=== PATIENT | female | born 1990 | race Hispanic/Latino ===

== ENCOUNTER 2021-07-19 19:31 | Inpatient (IN) | payer OTHER ==
[2021-07-19 19:57] VITALS: BMI 31.2
[2021-07-19] MEDS ORDERED: hydrALAZINE 20 MG/ML VIAL SLOW IVP PRN (20:20)
[2021-07-19 21:05] LABS: Fetal Membranes Rupture No Membranes Rupture (No Rupture)
[2021-07-19] MEDS ORDERED: Promethazine HCl 25 MG/ML VIAL IM PRN ×2 (22:22→23:59)
[2021-07-19] MEDS ORDERED: Ondansetron PF 4 MG/2 ML Vial IVP PRN ×2 (22:22→23:59)
[2021-07-19] MEDS ORDERED: Lidocaine 1% (PF) 30 ML VIAL SC PRN (22:22)
[2021-07-19] MEDS ORDERED: Ibuprofen 800 MG TAB PO PRN (22:22)
[2021-07-19] MEDS ORDERED: Acetaminophen 500 MG TAB PO PRN (22:22)
[2021-07-19] MEDS ORDERED: NS w/ Oxytocin 30 units 500 ML IV SCH (22:30)
[2021-07-19] MEDS ORDERED: Lactated Ringer's 1,000 ML IV SCH (22:30)
[2021-07-19] MEDS ORDERED: Butorphanol Tartrate 1 MG/ML VIAL SLOW IVP PRN (22:46)
[2021-07-19 22:56] LABS: Hemoglobin 10.3 g/dL (12.0-15.5); Mean Corpuscular HGB CONC 34.8 g/dL (32.0-36.0); Mean Corpuscular Hemoglobin 33.4 pg (27.0-33.0); Mean Corpuscular Volume 96.1 fl (81.6-98.3); Mean Platelet Volume 10.4 fl (7.4-10.4); Platelet Count 178 10x3/uL (150-450); RBC Distribution Width 13.3 % (11.5-14.5); Red Blood Cell (RBC) Count 3.08 10x6/uL (3.90-5.03); White Blood Cell (WBC) Count 11.2 10x3/uL (3.5-10.5)
[2021-07-19] MEDS ORDERED: Fentanyl 2 mcg/Bup 0.1% Cadd 100 ML ONE (23:13)
[2021-07-19 23:29] LABS: Hep B Surf Ag Non-Reactive S/CO (NonReactive); Syphilis Antibody Nonreactive (Nonreactive); Syphilis Antibody Index 0.04 S/CO (<1.00 Non-Reactive)
[2021-07-19 23:33] LABS: HBSAg Index 0.16 S/CO (0-0.99)
[2021-07-19] MEDS ORDERED: Communication Order-Pharmacy FS SCH (23:45)
[2021-07-19] MEDS ORDERED: Fentanyl 2 mcg/Bupivacaine 0.1% Cassette 100 ML EPIDURAL SCH (23:45)
[2021-07-19 23:53] LABS: SARS-CoV-2 NAA Rapid Test Not Detected (NotDetected)
[2021-07-19] MEDS ORDERED: Hydrocerin (Eucerin) Cream 120 gm Jar TOP PRN (23:59)
[2021-07-19] MEDS ORDERED: Lactated Ringer's 500 ML IV PRN (23:59)
[2021-07-19] MEDS ORDERED: ePHEDrine Sulfate 50 MG/10 ML VIAL SLOW IVP PRN (23:59)
[2021-07-19] MEDS ORDERED: diphenhydrAMINE 50 MG/ML VIAL IVP PRN (23:59)
[2021-07-19] MEDS ORDERED: Naloxone HCl 0.4 mg/ml Vial IVP PRN ×2 (23:59)
[2021-07-19] MEDS ORDERED: Acetaminophen 325 MG TAB PO PRN (23:59)
[2021-07-20 00:39] LABS: Glucose 74 mg/dL (70-105)
[2021-07-20] MEDS ORDERED: Boostrix 0.5 ML (Tdap) VIAL IM ONE (06:21)
[2021-07-20] MEDS ORDERED: Milk Of Magnesia 30 ML UDCUP PO PRN ×2 (06:21→07:20)
[2021-07-20] MEDS ORDERED: Bisacodyl 10 MG SUPP PR PRN ×2 (06:21→07:20)
[2021-07-20] MEDS ORDERED: hydrALAZINE 20 MG/ML VIAL SLOW IVP PRN (07:20)
[2021-07-20] MEDS ORDERED: Lanolin Ointment 7 GM TUBE TOP PRN (07:20)
[2021-07-20] MEDS ORDERED: Benzocaine-Menthol 82.5 ML CAN TOP PRN (07:20)
[2021-07-20] MEDS ORDERED: diphenhydrAMINE 25 MG CAP PO PRN (07:20)
[2021-07-20] MEDS: Ferrous Sulfate 325 MG TAB PO SCH ×4 (08:29→15:47)
[2021-07-20] MEDS: Docusate 100 MG CAP PO SCH ×4 (09:23→21:25)
[2021-07-20] MEDS: Prenatal Vitamin 1 TAB PO SCH (09:46)
[2021-07-20] MEDS: Ibuprofen 800 MG TAB PO SCH ×2 (13:50→21:23)
[2021-07-21] MEDS: Ibuprofen 800 MG TAB PO SCH ×3 (05:44→21:51)
[2021-07-21] MEDS: Ferrous Sulfate 325 MG TAB PO SCH ×4 (07:31→14:44)
[2021-07-21] MEDS: Docusate 100 MG CAP PO SCH ×4 (08:08→22:13)
[2021-07-21] MEDS: Prenatal Vitamin 1 TAB PO SCH (08:12)
[2021-07-22] MEDS: Ibuprofen 800 MG TAB PO SCH ×3 (05:42→22:45)
[2021-07-22] MEDS: Ferrous Sulfate 325 MG TAB PO SCH ×2 (08:27→14:31)
[2021-07-22] MEDS: Prenatal Vitamin 1 TAB PO SCH (09:03)
[2021-07-22] MEDS: Docusate 100 MG CAP PO SCH ×4 (09:03→22:45)
[2021-07-22 20:12] VITALS: BP 107/54; TEMP 98
== END 2021-07-22 22:30 | disposition home or self-care (01) | DRG 807 ==
LOC: CSHLD/OP 19:31 → CSHLD 22:52 → CSHPP 07-20 08:45
PROVIDERS: ADMIT Student in an Organized Health Care Education/Training Program; ATTEND Student in an Organized Health Care Education/Training Program
PROC: 10E0XZZ Delivery of Products of Conception, External Approach (ICD-10-PCS; principal; 2021-07-20)
DX: O42.02 Full-term premature rupture of membranes, onset of labor within 24 hours of rupture (principal); Z37.0 Single live birth; Z3A.38 38 weeks gestation of pregnancy; Z20.822 Contact with and (suspected) exposure to COVID-19; O24.429 Gestational diabetes mellitus in childbirth, unspecified control; F17.210 Nicotine dependence, cigarettes, uncomplicated; O99.334 Smoking (tobacco) complicating childbirth; O71.89 Other specified obstetric trauma
CPT/HCPCS: 36415; 82947; 84112; 85027; 86780; 86850; 86870; 86880; 86900; 86901; 86905; 86978; 87340; J0595; U0002